=== PATIENT | female | born 1985 | race Caucasian/White ===

== ENCOUNTER → 2018-12-18 | Outpatient (CLI) | payer OTHER ==
[~2018-12-18] MED LIST: Adipex-P37.5 M1 PO; CIPRO500 MG PO; ERYT.5TO LEFTEYE; METROGEL55 GM; Norco 5-325 Ta1 EACH PO; OXYACE5T PO; Prozac20 MG PO; ROXICODONE5 MG PO; TOPI100 PO
== END | disposition home or self-care (01) ==
LOC: LAB SHORT 18:32 → LAB 18:32
DX: N76.0 Acute vaginitis (principal)
CPT/HCPCS: 87070; 87147; 87205

== ENCOUNTER → 2019-05-27 | Outpatient (CLI) | payer OTHER ==
[~2019-05-27] MED LIST changes: +FLUOXETINE DR90 MG PO; +IBUP800 PO; +Nicoderm Cq1 EAC1 TOP; +TEMA15 PO
== END | disposition home or self-care (01) ==
LOC: LAB SHORT 11:49 → LAB UCHC 11:49
DX: N76.0 Acute vaginitis (principal)
CPT/HCPCS: 87070; 87147; 87205

== ENCOUNTER → 2019-10-06 | Outpatient (CLI) | payer OTHER ==
[2019-10-06 15:00] LABS: Candida species (DNA Probe) Negative (NEGATIVE); G. vaginalis (DNA Probe) Positive (NEGATIVE); T. vaginalis (DNA Probe) Negative (NEGATIVE)
== END ==
LOC: LAB UCHC 08:10 → LAB SHORT 08:10
PROVIDERS: Registered Nurse Community Health
DX: N89.8 Other specified noninflammatory disorders of vagina (principal)
CPT/HCPCS: 87480; 87510; 87660

== ENCOUNTER 2020-07-14 16:14 | Emergency (ER) | payer OTHER ==
[~2020-07-14] VITALS: Ht 172.7 cm; Wt 105.2 kg
[2020-07-14] MEDS ORDERED: Norco 5-325 Ta1 EACH PO (16:40)
[2020-07-14] MEDS ORDERED: Naprosyn500 MG PO (16:40)
[2020-07-14] MEDS ORDERED: Voltaren100 GM TOP (16:40)
== END 2020-07-14 17:25 | disposition home or self-care (01) ==
LOC: ER 16:14
DX: M75.102 Unspecified rotator cuff tear or rupture of left shoulder, not specified as traumatic (principal); Z87.891 Personal history of nicotine dependence
CPT/HCPCS: J1885

== ENCOUNTER 2021-06-01 06:07 | Day surgery (SDC) | payer OTHER ==
[~2021-06-01] VITALS: Ht 172.7 cm; Wt 113.3 kg
[~2021-06-01 06:07] MED LIST changes: +Cymbalta20 MG PO; +Naprosyn500 MG PO; +Voltaren100 GM TOP
--- NOTE | 2021-06-01 09:05 | NUR ---
DISCHARGE Patient up to Ambulate independently. Gait steady. A&OX4, VSS, ALESSANDRA PO. DENIED NEEDING TO VOID. IV DC'D. DECLINED WC. Discharge instructions reviewed with patient. Patient verbalizes understanding. Copy given to patient to take home. WALKED PT OUT OF HOSPITAL, SHE CALLED HER WALLCOVERING TEXTURER (ЕЛЕНА), SHE WAS ON HER WAY TO PICK HER UP.
== END 2021-06-01 22:40 | disposition home or self-care (01) ==
LOC: ORSCMMR 06:07 → ORD 07:30 → ORSCMMR 07:30
PROVIDERS: Surgery
PROC: 0U5M0ZZ Destruction of Vulva, Open Approach (ICD-10-PCS; principal; 2021-06-01 07:30)
PROC: 0DBQ0ZX Excision of Anus, Open Approach, Diagnostic (ICD-10-PCS; principal; 2021-06-01 07:30)
DX: A63.0 Anogenital (venereal) warts (principal); F41.8 Other specified anxiety disorders; J45.909 Unspecified asthma, uncomplicated; E66.9 Obesity, unspecified; Z68.38 Body mass index [BMI] 38.0-38.9, adult; F17.210 Nicotine dependence, cigarettes, uncomplicated; Z79.899 Other long term (current) drug therapy
CPT/HCPCS: 88305; J1100; J1885; J2250; J2405; J2704; J3010; J7120

== ENCOUNTER 2021-08-15 12:21 | Emergency (ER) | payer OTHER ==
[~2021-08-15] VITALS: Ht 170.2 cm; Wt 90.7 kg
[2021-08-15 13:36] LABS: Influenza A Negative (NEGATIVE); Influenza B Negative (NEGATIVE)
[2021-08-15 14:08] LABS: SARS-Cov-2 (COVID-19) PCR, MMC NEGATIVE (NEGATIVE)
[2021-08-15] MEDS ORDERED: BENZ100A PO (14:15)
== END 2021-08-15 14:30 | disposition home or self-care (01) ==
LOC: ER 12:21
PROVIDERS: Physician Assistant
DX: J06.9 Acute upper respiratory infection, unspecified (principal); Z20.822 Contact with and (suspected) exposure to COVID-19; Z87.891 Personal history of nicotine dependence; Z79.899 Other long term (current) drug therapy
CPT/HCPCS: 71045; 87804; 99284-25; A9270; U0004

== ENCOUNTER 2021-12-22 07:15 | Emergency (ER) | payer OTHER ==
[~2021-12-22] VITALS: Ht 172.7 cm; Wt 113.4 kg
[~2021-12-22 07:15] MED LIST changes: +BENZ100A PO
== END 2021-12-22 09:23 | disposition home or self-care (01) ==
LOC: ER 07:15
DX: L84 Corns and callosities (principal); M79.671 Pain in right foot; F17.210 Nicotine dependence, cigarettes, uncomplicated
CPT/HCPCS: 73620; 99283-25

== ENCOUNTER 2023-03-28 07:53 | Emergency (ER) | payer OTHER ==
[~2023-03-28] VITALS: Ht 172.7 cm; Wt 90.7 kg
[2023-03-28 08:09] VITALS: BP 142/79
[2023-03-28] MEDS ORDERED: OXYC5 PO (08:38)
== END 2023-03-28 09:04 | disposition home or self-care (01) ==
LOC: ER 07:53
DX: M65.4 Radial styloid tenosynovitis [de Quervain] (principal); F17.210 Nicotine dependence, cigarettes, uncomplicated
CPT/HCPCS: 73110; A9270; J1885

== ENCOUNTER 2023-06-29 07:04 | Emergency (ER) | payer OTHER ==
[~2023-06-29] VITALS: Ht 172.7 cm; Wt 117.9 kg
[~2023-06-29 07:04] MED LIST changes: +OXYC5 PO
[2023-06-29 07:19] VITALS: BP 145/92
[2023-06-29] MEDS ORDERED: ATOR10 PO (07:30)
[2023-06-29] MEDS ORDERED: TRAM50 PO (07:39)
[2023-06-29] MEDS ORDERED: NAPR500 PO (07:39)
== END 2023-06-29 08:37 | disposition home or self-care (01) ==
LOC: ER 07:04
DX: M25.531 Pain in right wrist (principal); W18.2XXA Fall in (into) shower or empty bathtub, initial encounter; F17.210 Nicotine dependence, cigarettes, uncomplicated
CPT/HCPCS: 29125; 73110; 73130; 99283-25; A9270